=== PATIENT | female | born 1955 | race Two or more races ===

== ENCOUNTER 2019-02-05 11:47 | Outpatient (CLI) | payer OTHER | END 2019-02-05 11:50 | disposition home or self-care (01) | LOC: TOM 11:47 | DX: R06.02 Shortness of breath (principal) ==

== ENCOUNTER 2022-08-20 10:20 | Emergency (ER) | payer OTHER ==
[~2022-08-20] VITALS: Ht 172.7 cm; Wt 95.3 kg
[2022-08-20] MEDS ORDERED: SYNTHROID125 MCG PO (10:50)
== END 2022-08-20 13:45 | disposition home or self-care (01) ==
LOC: ER 10:20
DX: S62.396A Other fracture of fifth metacarpal bone, right hand, initial encounter for closed fracture (principal); X58.XXXA Exposure to other specified factors, initial encounter; Y93.89 Activity, other specified; Y92.89 Other specified places as the place of occurrence of the external cause; Y99.9 Unspecified external cause status; Z88.8 Allergy status to other drugs, medicaments and biological substances

== ENCOUNTER 2022-08-27 09:34 | Outpatient (CLI) | payer OTHER ==
[~2022-08-27 09:34] MED LIST: SYNTHROID125 MCG PO
== END 2022-08-27 09:41 | disposition home or self-care (01) ==
LOC: RAD 09:34
PROVIDERS: ATTEND Orthopaedic Surgery
DX: S62.326A Displaced fracture of shaft of fifth metacarpal bone, right hand, initial encounter for closed fracture (principal)

== ENCOUNTER 2022-09-16 09:27 | Outpatient (CLI) | payer OTHER | END 2022-09-16 09:33 | disposition home or self-care (01) | LOC: RAD 09:27 | PROVIDERS: ATTEND Orthopaedic Surgery | DX: S62.326D Displaced fracture of shaft of fifth metacarpal bone, right hand, subsequent encounter for fracture with routine healing (principal) ==

== ENCOUNTER 2022-12-10 15:51 | Outpatient (CLI) | payer OTHER | END 2022-12-10 15:55 | disposition home or self-care (01) | LOC: LAB 15:51 | PROVIDERS: ATTEND Urology | DX: N39.0 Urinary tract infection, site not specified (principal) ==

== ENCOUNTER 2023-01-03 09:18 | Outpatient (CLI) | payer OTHER | END 2023-01-03 09:42 | disposition home or self-care (01) | LOC: SONOGRAMA 09:18 | PROVIDERS: ATTEND Urology | DX: R31.0 Gross hematuria (principal); R31.21 Asymptomatic microscopic hematuria ==